=== PATIENT | female | born 1990 | race Caucasian/White ===

== ENCOUNTER 2018-02-15 06:07 | Emergency (ER) | payer OTHER ==
[2018-02-15] MEDS ORDERED: Pepcid 20 MG VIAL IV ONE ×2 (06:40→06:44)
[2018-02-15] MEDS ORDERED: Sodium Chloride 0.9% 1000 ML 1,000 ML IV STA (06:40)
[2018-02-15] MEDS ORDERED: Zofran 4 MG/2 ML VIAL IV ONE (06:40)
[2018-02-15] MEDS ORDERED: Zofran 4 MG/2 ML VIAL ONE (06:43)
[2018-02-15] MEDS ORDERED: Sodium Chloride 0.9% 1000 ML 1,000 ML ONE ×2 (06:44→07:33)
--- NOTE | 2018-02-15 06:47 | ERPHSYRPT ---
- History of Present Illness Historian: patient Exam Limitations: no limitations Patient Subjective Stated Complaint: Pt arrives to ER with c/o vomiting since last night after eating at a buffet and has vomited x4 since 429. States tried to go to work and her boss drove her to the ER only for the reason of "white foamy vomit" which was the only concerning sx that brought her to the ER. Pt states she might have a "stomach bug that's going around". Pt also mentions hot flashes when the vomiting comes on. Pt denies pain, fever or any other sx. Triage Nursing Assessment: see above Timing/Duration: hour(s) (2) Activities at Onset: none Quality: other (denies) Pain Radiation: no radiation Severity of Pain-Max: none Severity of Pain-Current: none Modifying Factors: Improves With: nothing Associated Symptoms: nausea, vomiting Previous symptoms: no prior history Hx Tetanus, Diphtheria Vaccination/Date Given: No Hx Influenza Vaccination/Date Given: No Hx Pneumococcal Vaccination/Date Given: No <JANUARY AGUAYO - Last Filed: 02/15/18 07:19> <CHRIS BLAKE - Last Filed: 02/15/18 08:53> - History of Present Illness Time Seen by Provider: 02/15/18 06:43 Physician History: Pt started c/o nausea, vomiting since this morning, apparently she has vomited x4, denies abdominal or back pain, no diarrhea, fever, chills or urinary complaints. Her last menstrual period was 1 week ago, denies vaginal bleeding or discharge. (JANUARY AGUAYO) Allergies/Adverse Reactions: No Known Drug Allergies Allergy (Verified 02/15/18 06:22) - Review of Systems Constitutional: No Symptoms Abdominal/Gastrointestinal: Nausea, Vomiting, Constipation, No Abdominal Pain, No Diarrhea All Other Systems: Reviewed and Negative <JANUARY AGUAYO - Last Filed: 02/15/18 07:19> - Past Medical History Pertinent Past Medical History: Yes Neurological History: No Pertinent History ENT History: No Pertinent History Cardiac History: No Pertinent History Respiratory History: No Pertinent History Endocrine Medical History: No Pertinent History Musculoskeletal History: No Pertinent History GI Medical History: Gallbladder Disease History: No Pertinent History Psycho-Social History: Depression Female Reproductive Disorders: No Pertinent History - Past Surgical History Past Surgical History: Yes Neuro Surgical History: No Pertinent History Cardiac: No Pertinent History Respiratory: No Pertinent History Gastrointestinal: Cholecystectomy Genitourinary: No Pertinent History Musculoskeletal: No Pertinent History Female Surgical History: No Pertinent History Other Surgical History: Colonoscopy - Social History Smoking Status: Current every day smoker How long have you smoked: 8 YEARS Exposure to second hand smoke: Yes Drug Use: marijuana Patient Lives Alone: No - Female History Hx Now: No <AUGUSTINAKARLAJANUARY Soria - Last Filed: 02/15/18 07:19> - Physical Exam General Appearance: no apparent distress Eye Exam: eyes nml inspection Ears, Nose, Throat Exam: normal ENT inspection Neck Exam: normal inspection, non-tender, supple, No JVD Respiratory Exam: normal breath sounds, lungs clear, airway intact Cardiovascular Exam: regular rate/rhythm, normal heart sounds, normal peripheral pulses, No murmur Gastrointestinal/Abdomen Exam: soft, normal bowel sounds, No tenderness, No distention, No mass, No guarding, No rebound Back Exam: normal inspection, No CVA tenderness, No vertebral tenderness Extremity Exam: normal inspection Neurologic Exam: alert, oriented x 3, normal mood/affect Skin Exam: normal color, warm, dry, No rash Lymphatic Exam: No adenopathy SpO2 Interpretation: normal SpO2: 96 Oxygen Delivery: Room Air <DEDEJANUARY - Last Filed: 02/15/18 07:19> - Nursing Vital Signs Nursing Vital Signs: Initial Vital Signs Temperature 97.7 F 02/15/18 06:12 Pulse Rate 100 H 02/15/18 06:12 Respiratory Rate 18 02/15/18 06:12 Blood Pressure 126/71 02/15/18 06:12 O2 Sat by Pulse Oximetry 96 02/15/18 06:12 Pain Scale Pain Intensity 0 - Course Nursing assessment & vital signs reviewed: Yes <CHRIS BLAKE - Last Filed: 02/15/18 08:53> Ordered Tests: Active Orders 24 hr Category Date Time Status Clean Catch Urine Specimen STAT Care 02/15/18 06:24 Active IV Insertion STAT Care 02/15/18 06:40 Active AMYLASE Stat Lab 02/15/18 06:35 Completed CBC W DIFF Stat Lab 02/15/18 06:35 Completed CMP Stat Lab 02/15/18 06:35 Completed CULTURE,URINE Stat Lab 02/15/18 08:20 Received HCG QUALITATIVE,SERUM Stat Lab 02/15/18 06:30 Completed LIPASE Stat Lab 02/15/18 06:35 Completed UA W/ MICROSCOPIC Stat Lab 02/15/18 08:20 Completed Urine Triage Profile Stat Lab 02/15/18 08:16 Ordered Medication Summary Discontinued Medications Generic Name Dose Route Start Last Admin Trade Name Lynette PRN Reason Stop Dose Admin Famotidine 20 mg 02/15/18 06:40 02/15/18 06:50 Pepcid 20 Mg Vial IV 02/15/18 06:41 20 mg STAT ONE Administration Famotidine Confirm 02/15/18 06:44 Pepcid 20 Mg Vial Administered 02/15/18 06:45 Dose 20 mg IV .STK-MED ONE Sodium Chloride 1,000 mls @ 999 mls/hr 02/15/18 06:40 02/15/18 06:50 Sodium Chloride 0.9% 1000 Ml IV 02/15/18 07:40 999 mls/hr .Q1H1M STA Administration Sodium Chloride Confirm 02/15/18 06:44 Sodium Chloride 0.9% 1000 Ml Administered 02/15/18 06:45 Dose 1,000 mls @ ud .ROUTE .STK-MED ONE Sodium Chloride 500 mls @ 999 mls/hr 02/15/18 07:34 02/15/18 07:36 Sodium Chloride 0.9% 1000 Ml IV 02/15/18 08:04 999 mls/hr .Q31M STA Administration Sodium Chloride Confirm 02/15/18 07:33 Sodium Chloride 0.9% 1000 Ml Administered 02/15/18 07:34 Dose 1,000 mls @ ud .ROUTE .STK-MED ONE Ondansetron HCl 4 mg 02/15/18 06:40 02/15/18 06:50 Zofran 4 Mg/2 Ml Vial IV 02/15/18 06:41 4 mg STAT ONE Administration Ondansetron HCl Confirm 02/15/18 06:43 Zofran 4 Mg/2 Ml Vial Administered 02/15/18 06:44 Dose 4 mg .ROUTE .STK-MED ONE Lab/Rad Data: Laboratory Result Diagrams 02/15/18 06:35 02/15/18 06:35 Laboratory Results 06/20/18 06/20/18 06/20/18 Range/Units 08:20 06:35 06:35 WBC 10.0 (4.0-10.5) K/mm3 RBC 4.49 (4.1-5.4) M/mm3 Hgb 14.2 (12.0-16.0) gm/dl Hct 41.6 (35-47) % MCV 92.7 (78-100) fl MCH 31.6 (26-32) pg MCHC 34.1 (32-36) g/dl RDW 14.0 (11.5-14.0) % Plt Count 250 (150-450) K/mm3 MPV 9.6 H (6-9.5) fl Gran % 64.7 (36.0-66.0) % Eos # (Auto) 0.19 (0-0.5) Absolute Lymphs (auto) 2.68 (1.0-4.6) Absolute Monos (auto) 0.63 (0.0-1.3) Lymphocytes % 26.9 (24.0-44.0) % Monocytes % 6.3 (0.0-12.0) % Eosinophils % 1.9 (0.00-5.0) % Basophils % 0.2 (0.0-0.4) % Absolute Granulocytes 6.43 (1.4-6.9) Basophils # 0.02 (0-0.4) Sodium 141 (137-145) mmol/L Potassium 3.4 L (3.5-5.1) mmol/L Chloride 111 H (98-107) mmol/L Carbon Dioxide 23 (22-30) mmol/L Anion Gap 11.0 (5-15) MEQ/L BUN 11 (7-17) mg/dL Creatinine 0.74 (0.52-1.04) mg/dL Estimated GFR > 60.0 ML/MIN Glucose 104 (74-106) mg/dL Calcium 8.7 (8.4-10.2) mg/dL Total Bilirubin 0.20 (0.2-1.3) mg/dL AST 18 (14-36) U/L ALT 14 (0-35) U/L Alkaline Phosphatase 54 (38-126) U/L Serum Total Protein 5.8 L (6.3-8.2) g/dL Albumin 3.4 L (3.5-5.0) g/dL Amylase 49 (30-110) U/L Lipase 65 (23-300) U/L Serum , Qual (Negative) Ur Collection Type VOID Urine Color YELLOW (YELLOW) Urine Appearance CLEAR (CLEAR) Urine pH 5.0 (5-6) Ur Specific [place] 1.015 (1.005-1.025) Urine Protein NEGATIVE (Negative) Urine Ketones NEGATIVE (NEGATIVE) Urine Blood NEGATIVE (0-5) Pranav/ul Urine Nitrite NEGATIVE (NEGATIVE) Urine Bilirubin NEGATIVE (NEGATIVE) Urine Urobilinogen NORMAL (0-1) mg/dL Ur Leukocyte Esterase 1+ (NEGATIVE) Urine Microscopic WBC 5-10 (0-5) /HPF Ur Epithelial Cells FEW (FEW) /HPF Urine Bacteria MODERATE (NEGATIVE) /HPF Urine Culture Reflexed YES (NO) Urine Glucose NEGATIVE (NEGATIVE) mg/dL Specimen Received 02/15/18 0820 02/15/18 Range/Units 06:30 WBC (4.0-10.5) K/mm3 RBC (4.1-5.4) M/mm3 Hgb (12.0-16.0) gm/dl Hct (35-47) % MCV (78-100) fl MCH (26-32) pg MCHC (32-36) g/dl RDW (11.5-14.0) % Plt Count (150-450) K/mm3 MPV (6-9.5) fl Gran % (36.0-66.0) % Eos # (Auto) (0-0.5) Absolute Lymphs (auto) (1.0-4.6) Absolute Monos (auto) (0.0-1.3) Lymphocytes % (24.0-44.0) % Monocytes % (0.0-12.0) % Eosinophils % (0.00-5.0) % Basophils % (0.0-0.4) % Absolute Granulocytes (1.4-6.9) Basophils # (0-0.4) Sodium (137-145) mmol/L Potassium (3.5-5.1) mmol/L Chloride (98-107) mmol/L Carbon Dioxide (22-30) mmol/L Anion Gap (5-15) MEQ/L BUN (7-17) mg/dL Creatinine (0.52-1.04) mg/dL Estimated GFR ML/MIN Glucose (74-106) mg/dL Calcium (8.4-10.2) mg/dL Total Bilirubin (0.2-1.3) mg/dL AST (14-36) U/L ALT (0-35) U/L Alkaline Phosphatase (38-126) U/L Serum Total Protein (6.3-8.2) g/dL Albumin (3.5-5.0) g/dL Amylase (30-110) U/L Lipase (23-300) U/L Serum , Qual NEGATIVE (Negative) Ur Collection Type Urine Color (YELLOW) Urine Appearance (CLEAR) Urine pH (5-6) Ur Specific [place] (1.005-1.025) Urine Protein (Negative) Urine Ketones (NEGATIVE) Urine Blood (0-5) Pranav/ul Urine Nitrite (NEGATIVE) Urine Bilirubin (NEGATIVE) Urine Urobilinogen (0-1) mg/dL Ur Leukocyte Esterase (NEGATIVE) Urine Microscopic WBC (0-5) /HPF Ur Epithelial Cells (FEW) /HPF Urine Bacteria (NEGATIVE) /HPF Urine Culture Reflexed (NO) Urine Glucose (NEGATIVE) mg/dL Specimen Received <JANUARY AGUAYO - Last Filed: 02/15/18 07:19> - Progress Progress: improved Counseled pt/family regarding: lab results, diagnosis <CHRIS BLAKE - Last Filed: 02/15/18 08:53> - Progress Progress Note: 02/15/18 07:32 patient was given Zofran, Pepcid and IV fluids. Patient states she feels much better. (CHRIS BLAKE) <JANUARY AGUAYO - Last Filed: 02/15/18 07:19> - Departure Time of Disposition: 08:48 Departure Disposition: Home Critical Care Time: No <CHRIS BLAKE - Last Filed: 02/15/18 08:53> - Departure Clinical Impression: UTI (urinary tract infection) Vomiting Qualifiers: Vomiting type: unspecified Vomiting Intractability: non-intractable Nausea presence: with nausea Qualified Code(s): R11.2 - Nausea with vomiting, unspecified Condition: Stable Referrals: DOCTOR,NO FAMILY [Primary Care Provider] - Instructions: Vomiting -- Adult, Urinary Tract Infections in Adults Additional Instructions: RX: Cipro/Zofran. Drink plenty of clear liquids. Take Tylenol/Motrin for fever/pain. Return for worse abdominal pain, vomiting, diarrhea, weakness, dizziness or any problems Prescriptions: Ondansetron ODT 4 MG [Zofran Odt 4 mg] 4 mg PO Q6H PRN PRN #10 tab.rapdis PRN Reason: Nausea/Vomiting Ciprofloxacin [Cipro 500 MG] 500 mg PO BID 5 Days #10 tablet
[2018-02-15 06:50] LABS: BASOPHIL % 0.2 % (0.0-0.4); Basophil (Absolute #) 0.02 (0-0.4); Eosinophil % 1.9 % (0.00-5.0); Eosinophil (Absolute #) 0.19 (0-0.5); Granulocyte Absolute (ANC) 6.43 (1.4-6.9); Granulocytes % 64.7 % (36.0-66.0); Hematocrit 41.6 % (35-47); Hemoglobin 14.2 gm/dl (12.0-16.0); Lymphocyte (Absolute #) 2.68 (1.0-4.6); Lymphocytes % 26.9 % (24.0-44.0); Mean Cell Volume 92.7 fl (78-100); Mean Corpuscular Hemoglobin 31.6 pg (26-32); Mean Corpuscular Hgb Concent. 34.1 g/dl (32-36); Mean Platelet Volume 9.6 fl (6-9.5); Monocyte (Absolute #) 0.63 (0.0-1.3); Monocytes % 6.3 % (0.0-12.0); Platelet Count 250 K/mm3 (150-450); Red Blood Count 4.49 M/mm3 (4.1-5.4)
[2018-02-15 07:19] LABS: ALBUMIN 3.4 g/dL (3.5-5.0); ALKALINE PHOSPHATASE 54 U/L (38-126); AMYLASE 49 U/L (30-110); BLOOD UREA NITROGEN 11 mg/dL (7-17); CHLORIDE 111 mmol/L (98-107); Calcium 8.7 mg/dL (8.4-10.2); Carbon Dioxide 23 mmol/L (22-30); Creatinine 1 0.74 mg/dL (0.52-1.04); Glucose 104 mg/dL (74-106); LIPASE 65 U/L (23-300); Potassium 3.4 mmol/L (3.5-5.1); SGOT/AST 18 U/L (14-36); SGPT/ALT 14 U/L (0-35); SODIUM 141 mmol/L (137-145); Total Protein 5.8 g/dL (6.3-8.2)
[2018-02-15 08:45] LABS: Appearance CLEAR (CLEAR); Bacteria MODERATE /HPF (NEGATIVE); Bilirubin NEGATIVE (NEGATIVE); Blood NEGATIVE Ery/ul (0-5); Epithelial Cells FEW /HPF (FEW); Glucose NEGATIVE (NEGATIVE); Ketones NEGATIVE (NEGATIVE); Leukocyte Esterase 1+ (NEGATIVE); Nitrite NEGATIVE (NEGATIVE); Protein,Urine Dip NEGATIVE (Negative); Specific Gravity 1.015 (1.005-1.025); Urobilinogen NORMAL mg/dL (0-1)
[2018-02-15 08:54] VITALS: BP 117/69; PULSE 71; O2SAT 99
[2018-02-15 08:56] LABS: Amphetamine,Urine POSITIVE (NEGATIVE); Barbiturate,Urine NEGATIVE (NEGATIVE); Benzodiazepine,Urine NEGATIVE (NEGATIVE); Cocaine,Urine NEGATIVE (NEGATIVE); Methadone,Urine NEGATIVE (NEGATIVE); PCP,Urine NEGATIVE (NEGATIVE); THC,Urine POSITIVE (NEGATIVE)
[2018-02-15 09:03] LABS: Opiate,Urine NEGATIVE (NEGATIVE)
== END 2018-02-15 09:08 | disposition home or self-care (01) ==
LOC: ED 06:07
DX: N39.0 Urinary tract infection, site not specified (principal); R11.2 Nausea with vomiting, unspecified
CPT/HCPCS: 36000; 36415; 80053; 80307; 81000; 82150; 83690; 84703; 85025; 87077; 87086; 87186; 96360; 96361; 96374; 96375; 99284; J2405

== ENCOUNTER → 2018-02-23 | Emergency (ER) | payer OTHER | END | disposition left against medical advice (07) | LOC: ED 19:30 | DX: Z53.21 Procedure and treatment not carried out due to patient leaving prior to being seen by health care provider (principal) | CPT/HCPCS: 99281 ==